=== PATIENT | female | born 1995 ===

== ENCOUNTER 2025-08-09 11:54 | Outpatient (CLI) | payer OTHER | END 2025-08-09 12:40 | disposition home or self-care (01) | LOC: NST 11:54 | PROVIDERS: ATTEND General Practice | DX: Z34.83 Encounter for supervision of other normal pregnancy, third trimester (principal) ==

== ENCOUNTER 2025-08-18 19:42 | Inpatient (IN) | payer OTHER ==
[~2025-08-18] VITALS: Ht 152.4 cm; Wt 2.3 kg
[2025-08-18 19:30] VITALS: BP 147/95
[~2025-08-18 19:42] MED LIST: IRON236 MG PO; PRENATAL TABLE1 EAC1 PO
[2025-08-18 19:50] VITALS: BP 145/91
[2025-08-18 20:10] VITALS: BP 149/95
[2025-08-18] MEDS ORDERED: RINGERS SOLUTION,LACTATED 1,000 ML IV SCH (20:15)
[2025-08-18 20:30] VITALS: BP 154/94
[2025-08-18 20:42] LABS: URINE APPEARANCE Clear; URINE BILIRRUBIN Negative (NEGATIVE); URINE BLOOD Negative; URINE COLOR Yellow; URINE GLUCOSE Negative (NEGATIVE); URINE KETONE Negative (NEGATIVE); URINE LEUKOCYTE Large; URINE NITRATE Negative; URINE PROTEIN Negative (NEGATIVE); URINE UROBILINOGEN 0.2 E.U./dl
[2025-08-18 20:45] LABS: URINE EPITHELIAL CELLS 57.8 uL (0.0-38.8); URINE RBC 2.9 uL (0.0-20.8); URINE WBC 260.4 uL (0.0-23.2)
[2025-08-18] MEDS ORDERED: FAMOTIDINE/PF 20 MG/2 ML VIAL IV PUSH ONE (21:00)
[2025-08-18 21:10] LABS: INR < 0.93
[2025-08-18 21:12] LABS: URINE CAST 0.87 uL (0.0-1.40)
[2025-08-18 21:17] LABS: ALT/SGPT 35.0 U/L (12-78); AST/SGOT 44.0 U/L (15-37); BILIRUBIN TOTAL 0.33 mg/dL (0.3-1.2); BUN CREA RATIO 15.0 (7.0-25.0); CREATININE SERUM 1.01 mg/dL (0.55-1.02); GFR 64.8; GLOBULINA 3.5 G/DL (2.4-3.5); GLUCOSE FASTING 106.0 mg/dL (65-100); OSMOLALITY SERUM 281.0 MOSM/KG (275-295); TYPE CELLS SQUAMOUS
[2025-08-18 21:30] VITALS: BP 153/92
[2025-08-18] MEDS ORDERED: MAGNESIUM SULFATE IN WATER 4 GM/100 ML PIGGYBACK IV ONE (21:37)
[2025-08-18] MEDS ORDERED: MAGNESIUM SULFATE IN WATER 500 ML IV SCH (22:00)
[2025-08-18] MEDS ORDERED: MAGNESIUM SULFATE IN WATER 4 GM/100 ML PIGGYBACK IV SCH (22:00)
[2025-08-18] MEDS ORDERED: CEFAZOLIN SODIUM 1,000 MG VIAL IV ONE (22:00)
[2025-08-18] MEDS ORDERED: OXYTOCIN 10 UNITS/ML VIAL ONE (22:01)
[2025-08-18] MEDS ORDERED: ERYTHROMYCIN BASE OPHT 1GM EACH TUBE OP ONE (22:02)
[2025-08-18 22:07] LABS: BASO % 0.3 % (0.1-1.2); EOS # 0.01 (0.04-0.54); EOS % 0.1 % (0.7-7.0); LYMPH # 1.46 (1.18-3.74); LYMPH % 15.7 % (19.3-53.1); MEAN PLATELET VOLUME 11.20 fl (9.4-12.4); MONO # 0.99 (0.24-0.82); MONO % 10.6 % (4.7-12.5); NEUT # 6.52 (1.56-6.13); NEUT % 70.0 % (34.0-71.1); RED CELL DISTRIBUTION WIDTH 14.2 % (11.6-14.4)
[2025-08-18 22:24] VITALS: BP 132/95; O2SAT 98
[2025-08-18] MEDS ORDERED: OXYTOCIN 1,000 ML IV SCH (23:30)
[2025-08-18] MEDS ORDERED: CHLORHEXIDINE GLUCONATE 120 ML BOTTLE TP SCH (23:30)
[2025-08-18] MEDS ORDERED: SODIUM CHLORIDE 0.45 % 1,000 ML IV SCH (23:30)
[2025-08-18] MEDS ORDERED: OxyCODONE HCL 5 MG TABLET (ROXICODONE) PO PRN (23:45)
[2025-08-19] MEDS ORDERED: OXYTOCIN 10 UNITS/ML VIAL ONE (03:05)
[2025-08-19 06:44] LABS: BASO % 0.2 % (0.1-1.2); EOS # 0.00 (0.04-0.54); EOS % 0.0 % (0.7-7.0); LYMPH # 1.81 (1.18-3.74); LYMPH % 10.7 % (19.3-53.1); MEAN PLATELET VOLUME 11.10 fl (9.4-12.4); MONO # 1.47 (0.24-0.82); MONO % 8.7 % (4.7-12.5); NEUT # 13.54 (1.56-6.13); NEUT % 79.6 % (34.0-71.1); RED CELL DISTRIBUTION WIDTH 13.9 % (11.6-14.4)
[2025-08-19 07:25] LABS: ALT/SGPT 30.0 U/L (12-78); AST/SGOT 43.0 U/L (15-37); BILIRUBIN TOTAL 0.45 mg/dL (0.3-1.2); BUN CREA RATIO 21.0 (7.0-25.0); CREATININE SERUM 0.62 mg/dL (0.55-1.02); GFR 113.8; GLOBULINA 3.1 G/DL (2.4-3.5); GLUCOSE FASTING 92.0 mg/dL (65-100); OSMOLALITY SERUM 279.0 MOSM/KG (275-295)
[2025-08-19] MEDS ORDERED: DOCUSATE SODIUM 100MG CAP PO SCH (09:00)
[2025-08-19 11:15] VITALS: BP 142/92; O2SAT 100
[2025-08-19 15:20] VITALS: BP 124/84
[2025-08-19 17:09] LABS: BASO % 0.2 % (0.1-1.2); EOS # 0.04 (0.04-0.54); EOS % 0.2 % (0.7-7.0); LYMPH # 1.47 (1.18-3.74); LYMPH % 8.6 % (19.3-53.1); MEAN PLATELET VOLUME 11.80 fl (9.4-12.4); MONO # 0.88 (0.24-0.82); MONO % 5.1 % (4.7-12.5); NEUT # 14.68 (1.56-6.13); NEUT % 85.4 % (34.0-71.1); RED CELL DISTRIBUTION WIDTH 13.8 % (11.6-14.4)
[2025-08-19 17:39] LABS: ALT/SGPT 35.0 U/L (12-78); AST/SGOT 52.0 U/L (15-37); BILIRUBIN TOTAL 0.92 mg/dL (0.3-1.2); BUN CREA RATIO 17.0 (7.0-25.0); CREATININE SERUM 0.54 mg/dL (0.55-1.02); GFR 133.47; GLOBULINA 3.4 G/DL (2.4-3.5); GLUCOSE FASTING 83.0 mg/dL (65-100); OSMOLALITY SERUM 270.0 MOSM/KG (275-295)
[2025-08-19] MEDS ORDERED: ACETAMINOPHEN 500 MG GEL..CAP PO PRN (19:15)
[2025-08-20 00:03] VITALS: BP 126/81
[2025-08-20] MEDS ORDERED: SIMETHICONE 125 MG CAPSULE PO SCH (09:00)
[2025-08-20 09:05] VITALS: BP 127/85
[2025-08-20 15:44] LABS: ALT/SGPT 45.0 U/L (12-78); AST/SGOT 48.0 U/L (15-37); BILIRUBIN TOTAL 0.56 mg/dL (0.3-1.2); BUN CREA RATIO 18.0 (7.0-25.0); CREATININE SERUM 0.65 mg/dL (0.55-1.02); GFR 107.76; GLOBULINA 3.2 G/DL (2.4-3.5); GLUCOSE FASTING 81.0 mg/dL (65-100); OSMOLALITY SERUM 282.0 MOSM/KG (275-295)
[2025-08-20 17:30] VITALS: BP 146/88
[2025-08-21] VITALS: BP 124/81
[2025-08-21 09:00] VITALS: BP 128/89
== END 2025-08-21 14:19 | disposition home or self-care (01) | DRG 788 ==
LOC: LDR 19:42 → OB/GYN 08-19 18:52
PROVIDERS: Student in an Organized Health Care Education/Training Program; ADMIT General Practice; ATTEND General Practice
PROC: 4A1HXCZ Monitoring of Products of Conception, Cardiac Rate, External Approach (ICD-10-PCS; 2025-08-18)
PROC: 10D00Z1 Extraction of Products of Conception, Low, Open Approach (ICD-10-PCS; principal; 2025-08-18 23:30)
DX: O14.14 Severe pre-eclampsia complicating childbirth (principal); O99.02 Anemia complicating childbirth; D64.9 Anemia, unspecified; O60.10X0 Preterm labor with preterm delivery, unspecified trimester, not applicable or unspecified; Z3A.36 36 weeks gestation of pregnancy; Z37.0 Single live birth